=== PATIENT | male | born 1980 | race Caucasian/White ===

== ENCOUNTER 2019-08-28 13:00 | Emergency (ER) | payer BC ==
--- OUTSIDE RECORDS SUMMARY | 2019-08-28 13:17 | XMS REPORT | Summary of Care ---
:1980 Author Organization [facility] Address [address] [place] [address] Care Team Providers Name Role Phone Yina Duff MD Primary Care Provider Reason for Visit Reason Comments Follow-up f/u renal scan with lasix Encounter Details Date Type Department Care Team Description 07/17/2019 Office Visit [facility] Urology David Nair MD Hydronephrosis, bilateral (Primary Dx); [address] [facility], [address] [facility] UPJ obstruction, [place] [address] [place] [phone] Allergies Active Allergy Reactions Severity Noted Date Comments Gluten Free-In Food 04/21/2018 documented as of this encounter (statuses as of 07/18/2019) Medications No known medicationsdocumented as of this encounter (statuses as of 07/18/2019) Active Problems Problem Noted Date UPJ obstruction, congenital 07/18/2019 Hydronephrosis, bilateral documented as of this encounter (statuses as of 07/18/2019) Social History Tobacco Use Types Packs/Day Years Used Date Never Smoker Smokeless Tobacco: Never Used Comments: smokes marijuana Alcohol Use Drinks/Week oz/Week Comments No Sex Assigned at Date Recorded Not on file Job Start Date Occupation Industry Not on file Not on file Not on file Travel History Travel Start Travel End No recent travel history available. documented as of this encounter Last Filed Vital Signs Vital Sign Reading Time Taken Comments Blood Pressure 132/70 07/17/2019 4:00 PM EST Pulse 76 07/17/2019 4:00 PM EST Temperature 36.7 07/17/2019 4:00 PM EST C (98.1 F) Respiratory Rate - - Oxygen Saturation 100% 07/17/2019 4:00 PM EST Inhaled Oxygen Concentration - - Weight 78.5 kg (173 lb) 07/17/2019 4:00 PM EST Height 181.6 cm (5' 11.5") 07/17/2019 4:00 PM EST Body Mass Index 23.79 07/17/2019 4:00 PM EST documented in this encounter Progress Notes Jamal Pichardo MD - 07/17/2019 4:00 PM EST Urology Clinic Follow Up Note History: Patient is a 39 y/o male who presents for consultation regarding bilateral UPJ obstructions. He was from [facility], and recently moved to [place]. In 2012, he had bilateral pyeloplasties done robotically on 2 different occasions. Prior to this, he had a CT scan that showed bilateral hydronephrosis,but he was asymptomatic. His right kidney is very small and left is hypertrophied. He reports that his right kidney was functioning at 25% prior to surgery. He had a renal US in 2014 that showed persistent bilateral severe hydronephrosis. He has since undergone DTPA lasix renal scan which demonstratessplit function of L75%/ R25%, and no evidence of high grade obstruction. Patient remains asymptomatic. He denies any flank pain or urinary symptoms. Review of Systems: Head: denies trauma WYNN, N/V Eye: no acute change in vision Ears: no hearing Mouth/throat: no sore throat, no difficulty swallowing Pul: denies SOB, Coughing, sputum production, CV: denies CP, palpitations, no Hx of CAD, A-fib Abd: no abd pain, diarrhea, constipation, Ext: denies tingling, or swelling Neuro: Denies dizziness, vertigo, loss of sensation or motor reflexes Objetive: Visit Vitals BP 124/77 Pulse 64 Temp 36.7 C (Oral) Resp 18 Ht 1.88 m Wt 63 kg (139 lb) SpO2 99% BMI 17.84 kg/m Physical Exam Gen: no apparent distress, alert and oriented HEENT: NCAT, moist mucous membranes, nares patent CVS: regular rate Resp:non-labored, breathing comfortably GI: Soft, non-distended, non-tender Ext: warm, well perfused Imaging Lasix Renal Scan IMPRESSION: 1. Redemonstrated marked left hydronephrosis. 2. Unchanged visual uptake characteristics in both kidneys after lasix. Compared to the prior study,drainage is slightly more sluggish, which may be seen with dehydration. There is no evidence of high-grade obstruction, however, the system is patulous. 3. Estimated total GFR of 62.5 mL/min, corresponding to a split differential function of 77.7% on the left and 22.3% on the right, grossly unchanged from the prior study. Assessment/Plan Patient is a 39 y/o male with a PMHx of bilateral pyeloplasty in 2012. He presents for a routine visit at the recommendation of his PCP. He remains asymptomatic. His renal scan does not demonstrate anyhigh grade obstruction and a stable split renal function. We will see him back in 2 years with a repeat renal ultrasound and BMP Jamal Pichardo MD Resident Physician | PGY-2 Department of Urology I saw, examined and evaluated the patient with the resident and I agree with the above note, assessment and plan. I would like to thank you for the referral of this patient and I will keep you informed about his progress. David Nair MD FACS Radio Commentator Departments of Urology and Radiation Oncology [place], [place] documented in this encounter Plan of Treatment Date Type Specialty Care Team Description 07/10/2021 Office Visit Urology David Nair MD [address] [place] [address] [phone] Health Maintenance Due Date Last Done Comments MMR Vaccines (1 of 1 - Standard 1979 series) Varicella Vaccines (1 of 2 - 1979 2-dose childhood series) DTaP,Tdap,and Td Vaccines (1 - 1985 Tdap) HIV Screening 1991 Influenza Vaccine 04/28/2019 Pneumococcal Vaccine: 65+ Years (1 2043 of 2 - PCV13) HIB Vaccines Aged Out No longer eligible based on patient's age to complete this topic Hepatitis A Vaccines Aged Out No longer eligible based on patient's age to complete this topic Hepatitis B Vaccines Aged Out No longer eligible based on patient's age to complete this topic IPV Vaccines Aged Out No longer eligible based on patient's age to complete this topic Pneumococcal Vaccine: Pediatrics Aged Out No longer eligible based on (0 to 5 Years) and At-Risk patient's age to complete this Patients (6 to 64 Years) topic documented as of this encounter Results Not on filedocumented in this encounter Visit Diagnoses Diagnosis Hydronephrosis, bilateral - Primary Hydronephrosis UPJ obstruction, congenital Congenital obstruction of ureteropelvic junction documented in this encounter
--- OUTSIDE RECORDS SUMMARY | 2019-08-28 13:17 | XMS REPORT | Summary of Care ---
:1980 Author Organization [facility] Address [address] [place] [address] Care Team Providers Name Role Phone Yina Duff MD Primary Care Provider Reason for Referral Diagnostic Radiology (Routine) Status Reason Specialty Diagnoses / Referred By Referred To Procedures Contact Contact Authorized Radiology Diagnoses Hydronephrosis, bilateral David Nair MD Procedures NM Kidney Function with Lasix [address] [place] [address] Email: [email or web address] Reason for Visit Diagnostic Radiology (Routine) Status Reason Specialty Diagnoses / Referred By Referred To Procedures Contact Contact Authorized Radiology Diagnoses Hydronephrosis, bilateral David Nair MD Procedures NM Kidney Function with Lasix [address] [place] [address] Email: [email or web address] Encounter Details Date Type Department Care Team Description 07/13/2019 Hospital Encounter Nuclear Medicine Hydronephrosis, [address] [place] [phone] Allergies Active Allergy Reactions Severity Noted Date Comments Gluten Free-In Food 04/21/2018 documented as of this encounter (statuses as of 07/14/2019) Medications No known medicationsdocumented as of this encounter (statuses as of 07/14/2019) Active Problems Problem Noted Date Hydronephrosis, bilateral documented as of this encounter (statuses as of 07/14/2019) Social History Tobacco Use Types Packs/Day Years [...] of this encounter Last Filed Vital Signs Not on filedocumented in this encounter Plan of Treatment Date Type Specialty Care Team Description 07/17/2019 Office Visit Urology David Nair [place] [address] [phone] Name Type Priority Associated Diagnoses Date/Time NM Kidney Function Imaging Routine Hydronephrosis, 07/13/2019 12:37 PM with Lasix bilateral EST Health Maintenance Due Date Last Done Comments [...] Years) topic documented as of this encounter Procedures Procedure Name Priority Date/Time Associated Diagnosis Comments NM KIDNEY FUNCTION Routine 07/13/2019 12:37 PM Hydronephrosis, WITH PHARM - 00810 EST bilateral Procedure Note - Interface, Received Via [employer] - 07/13/2019 4:44 PM EST INDICATION: Hydronephrosis TECHNIQUE: Following the intravenous injection of 15.4 mCi of Tc-99m labeled DTPA, immediate flow images were obtained over the kidneys in the posterior projection. Next, functional images were obtained in the same projection over thirty minutes. Additional functional images were obtained following the intravenous administration of 20 mg of furosemide. COMPARISON: CT abdomen pelvis dated 05/23/2018; nuclear medicine renal function study dated 05/23/2018. FINDINGS: The patient was unable to complete the procedure. Within these limitations, there is redemonstrated left hydronephrosis. Visually, uptake during the flow portion of the study is similar to the prior examination, however drainage is slightly more sluggish, which may be seen in the setting of dehydration. There is no evidence of high-grade obstruction. The T-1/2 bilaterally measured greater than 21 minutes, however the patient left the table prior to the completion of the procedure. The total GFR estimated from renal uptake measurements was 62.5 ml/min. This corresponds to a split differential function of 55.8 ml/min (77.7%) on the left and 16.0 ml/min (22.3%) on the right, grossly unchanged from the prior study. IMPRESSION: 1. Redemonstrated left hydronephrosis. 2. Unchanged visual uptake characteristics in both kidneys. Compared to the prior study, drainage is slightly more sluggish, which may be seen with dehydration. There is no evidence of high-grade obstruction. 3. Estimated total GFR of 62.5 mL/min, corresponding to a split differential function of 77.7% on the left and 22.3% on the right, grossly unchanged from the prior study. documented in this encounter Results Not on filedocumented in this encounter Visit Diagnoses Diagnosis Hydronephrosis, bilateral Hydronephrosis documented in this encounter Administered Medications Medication Order MAR Action Action Date Dose Rate Site furosemide (LASIX) injection 20 mg New Bag 07/13/2019 11:47 AM EST 20 mg 20 mg, Intravenous, Once, Sat07/13/19 at 1145, For 1 dose TC-99M pentetate New Bag 07/13/2019 10:30 15.4 millicuries Right Arm Intravenous, Once, Sat07/13/19 AM EST at 1030, For 1 dose, Imaging Protocol documented in this encounter
--- NOTE | 2019-08-28 14:18 | ED ---
Psychiatric Complaint - HPI Summary HPI Summary: Pt is a 39 y/o M presenting to the ED with a chief psychiatric complaint. 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 He believes someone in the salon possibly called the police, but hes unsure who. He denies physical sx, such as fever. He does endorse feeling depressed and alone. - History Of Current Complaint Chief Complaint: EDMentalHealth Time Seen by Provider: 08/28/19 14:11 Hx Obtained From: Patient Onset/Duration: Gradual Onset, Lasting Hours, Still Present Timing: Hours Severity Initially: Moderate Severity Currently: Moderate Character: Depressed, Anxious Aggravating Factor(s): Nothing Alleviating Factor(s): Nothing Associated Signs And Symptoms: Positive: Negative Has Suicidal: Reports: Thoughts Has Homicidal: Denies: Thoughts - Allergies/Home Medications Allergies/Adverse Reactions: Allergies Allergy/AdvReac Type Severity Reaction Status Date / Time gluten Allergy Unknown Verified 08/28/19 13:11 Reaction Details Home Medications: Home Medications NK [No Home Medications Reported] 08/28/19 [History Confirmed 08/28/19] PMH/Surg Hx/FS Hx/Imm Hx Previously Healthy: Yes Endocrine/Hematology History: Reports: Other Endocrine/Hematological Disorders - thalassemia History: Reports: Hx Acute Renal Failure, Hx Kidney Infection, Hx Renal Disease, Other Problems/Disorders - bilateral kidney reconstructive surgery Sensory History: Reports: Hx Contacts or Glasses Opthamlomology History: Reports: Hx Contacts or Glasses Infectious Disease History: No Infectious Disease History: Denies: Traveled Outside the [place] in Last 30 Days - Social History Alcohol Use: None Hx Substance Use: No Substance Use Type: Reports: None Hx Tobacco Use: No Smoking Status (MU): Never Smoked Tobacco Review of Systems Negative: Fever Positive: Anxious, Depressed All Other Systems Reviewed And Are Negative: Yes Physical Exam - Summary Physical Exam Summary: Appearance: The patient is well-nourished in no acute distress and in no acute pain. Skin: The skin is warm and dry, and skin color reflects adequate perfusion. HEENT: The head is normocephalic and atraumatic. The pupils are equal and reactive. The conjunctivae are clear and without drainage. Nares are patent and without drainage. Mouth reveals moist mucous membranes, and the throat is without erythema and exudate. The external ears are intact. The ear canals are patent and without drainage. The tympanic membranes are intact. Neck: The neck is supple with full range of motion and non-tender. There are no carotid bruits. There is no neck vein distension. Respiratory: Chest is non-tender. Lungs are clear to auscultation and breath sounds are symmetrical and equal. Cardiovascular: Heart is regular rate and rhythm. There is no murmur or rub auscultated. There is no peripheral edema and pulses are symmetrical and equal. Abdomen: The abdomen is soft and non-tender. There are normal bowel sounds heard in all four quadrants and there is no organomegaly palpated. Musculoskeletal: There is no back tenderness noted. Extremities are non-tender with full range of motion. There is good capillary refill. There is no peripheral edema or calf tenderness elicited. Neurological: Patient is alert and oriented to person, place and time. The patient has symmetrical motor strength in all four extremities. Cranial nerves are grossly intact. Deep tendon reflexes are symmetrical and equal in all four extremities. Psychiatric: The patient has an appropriate affect and does not exhibit any anxiety or depression. Triage Information Reviewed: Yes Vital Signs On Initial Exam: Initial Vitals Temp Pulse Resp BP Pulse Ox 98.1 F 78 16 128/92 100 08/28/19 13:03 08/28/19 13:03 08/28/19 13:03 08/28/19 13:03 08/28/19 13:03 Vital Signs Reviewed: Yes Procedures - Sedation Patient Received Moderate/Deep Sedation with Procedure: No Diagnostics - Vital Signs Vital Signs Temp Pulse Resp BP Pulse Ox 08/28/19 13:03 98.1 F 78 16 128/92 100 - Laboratory Result Diagrams: 08/28/19 14:22 08/28/19 14:22 Lab Statement: Any lab studies that have been ordered have been reviewed, and results considered in the medical decision making process. Course/Dx - Course Course Of Treatment: He has been medically cleared and is awaiting a mental health. - Differential Dx/Clinical Impression Provider Diagnosis: Depression Discharge ED - Sign-Out/Discharge Documenting (check all that apply): Sign-Out Patient Signing out patient TO: Whitney Mullen - Discharge Plan Condition: Stable Referrals: Cruz Avina MD [Primary Care Provider] - - Billing Disposition and Condition Condition: STABLE - Attestation Statements Document Initiated by Scribe: Yes Documenting Scribe: Alem Jang Provider For Whom Scribe is Documenting (Include Credential): Bhaskar Diop MD. Scribe Attestation: I, Alem Jang, scribed for Bhaskar Diop MD. on 08/28/19 at 1800. Scribe Documentation Reviewed: Yes Provider Attestation: The documentation as recorded by the scribe, Alem Jang accurately reflects the service I personally performed and the decisions made by me, Bhaskar Diop MD. Status of Scribe Document: Viewed
[2019-08-28 14:33] LABS: ABS Basophils 0.1 10^3/ul (0-0.2); ABS Eosinophils 0.1 10^3/ul (0-0.6); ABS Lymphocytes 1.5 10^3/ul (1.0-4.8); ABS Monocytes 0.5 10^3/ul (0-0.8); ABS Neutrophils 4.7 10^3/ul (1.5-7.7); Eosinophil % 1.4 %; Hematocrit 38 % (42-52); Hemoglobin 12.3 g/dL (14.0-18.0); Lymphocyte % 21.6 %; Mean Corpuscular HGB Conc 33 g/dL (31-36); Mean Corpuscular Hemoglobin 22 pg (27-31); Mean Corpuscular Volume 67 fL (80-94); Mean Platelet Volume 7.9 fL (7.4-10.4); Nucleated Red Blood Cells % 0.1; Platelet Count 310 10^3/uL (150-450); Red Blood Count 5.63 10^6 /uL (4.18-5.48); Red Cell Distribution Width 18 % (10-15); White Blood Count 6.9 10^3/uL (3.5-10.8)
[2019-08-28 14:52] LABS: Urine Benzodiazepine Screen None Detected (None Detect); Urine Opiates Screen None Detected (None Detect)
[2019-08-28 14:55] LABS: ALT 13 U/L (7-52); AST 12 U/L (13-39); Albumin 4.6 g/dL (3.2-5.2); Albumin/Globulin Ratio 1.8 (1-3); Alkaline Phosphatase 55 U/L (34-104); Anion Gap 8 mmol/L (2-11); BUN/Creatinine Ratio 14.4 (8-20); Blood Urea Nitrogen 14 mg/dL (6-24); CO2 Carbon Dioxide 27 mmol/L (22-32); Calcium 9.9 mg/dL (8.6-10.3); Chloride 106 mmol/L (101-111); EGFR African American 103.2 (>60); EGFR Non-African American 85.3 (>60); Globulin 2.5 g/dL (2-4); Glucose 92 mg/dL (70-100); Sodium 141 mmol/L (135-145); Total Protein 7.1 g/dL (6.4-8.9)
[2019-08-28 15:00] LABS: Urine Appearance Clear; Urine Bilirubin Negative (Negative); Urine Blood Negative (Negative); Urine Color Yellow; Urine Glucose Negative (Negative); Urine Ketones Trace (Negative); Urine Nitrite Negative (Negative); Urine Protein Negative (Negative); Urine Specific Gravity 1.016 (1.010-1.030); Urine Urobilinogen Negative (Negative)
[2019-08-28 15:16] LABS: Acetaminophen < 15 mcg/mL; Alcohol < 10 mg/dL (<10); Salicylate < 2.50 mg/dL (<30)
[2019-08-28 15:29] LABS: Microcytosis 3+
[2019-08-28 15:30] LABS: TSH (Thyroid Stimulating Horm) 0.96 mcIU/mL (0.34-5.60)
--- NOTE | 2019-08-28 19:10 | ED ---
Progress - Progress Note Progress Note: The pt is a sign-out from Dr. Diop at the 189908/28/2019 shift change pending disposition. The pt will be discharged home with PCP follow up. Course/Dx - Course Course Of Treatment: He has been medically cleared and is awaiting a mental health. The pt is a sign-out to Dr. Mullen at the 189908/28/2019 shift change pending disposition. after mental health evaluation, pt will be discharged home with PCP follow up. Pt is agreeable with this plan. - Diagnoses Provider Diagnoses: Depression Discharge ED - Sign-Out/Discharge Documenting (check all that apply): Patient Departure - discharge, Receiving Sign-Out Receiving patient FROM: Bhaskar Diop - Discharge Plan Condition: Stable Disposition: HOME Patient Education Materials: Depression (ED) Referrals: Cruz Avina MD [Primary Care Provider] - 3 Days Additional Instructions: Please follow up with your PCP within 2-3 days. Please return to the ED for any new or worsening symptoms. - Billing Disposition and Condition Condition: STABLE Disposition: Home - Attestation Statements Document Initiated by Scribe: Yes Documenting Scribe: Daniel Plata Provider For Whom Lauren is Documenting (Include Credential): Whitney Mullen MD Scribe Attestation: IDaniel, scribed for Whitney Mullen MD on 08/28/19 at 2309. Scribe Documentation Reviewed: Yes Provider Attestation: The documentation as recorded by the Daniel marques accurately reflects the service I personally performed and the decisions made by me, Whitney Mullen MD Status of Scribe Document: Viewed
[2019-08-28 19:25] VITALS: BP 146/67
== END 2019-08-28 19:23 | disposition home or self-care (01) ==
LOC: ED 13:00
DX: F32.9 Major depressive disorder, single episode, unspecified (principal); N17.9 Acute kidney failure, unspecified; Z91.018 Allergy to other foods
CPT/HCPCS: 36415; 80053; 80307; 80320; 80329; 81003; 84443; 85025; 85060; 99285; G0480